=== PATIENT | male | born 1955 | race Caucasian/White ===

== ENCOUNTER 2019-05-10 12:15 | Emergency (ER) | payer OTHER, SELFPAY ==
[2019-05-10 12:22] VITALS: BP 137/71; PULSE 74; RESP 18; TEMP 36.1; O2SAT 99
--- NOTE | 2019-05-10 13:07 | ED.URI ---
HPI - URI/Sore Throat General Chief Complaint: Upper Respiratory Infection Stated Complaint: SINUS CONGESTION/SORE THROAT/COUGH Time Seen by Provider: 05/10/19 12:18 Source: patient Mode of arrival: ambulatory Limitations: no limitations History of Present Illness HPI Narrative: 63-year-old male presents to urgent care with complaints of sinus pressure, nasal congestion, sore throat, bilateral ear pain and dry cough for the past 5 days. Patient takes Claritin and guaifenesin daily. Patient also has been taking [id number] DayQuil and NyQuil with minimal relief. Patient is a non-smoker. Patient reports that family members have recently been ill with similar symptoms. Patient denies recent travel. Patient denies fever, bites, chills, nausea, vomiting or diarrhea. MD elicited complaint: cough, sore throat and nasal congestion Onset (ago): day(s) (5) Consistency: constant Able to tolerate fluids by mouth: Yes Exacerbating factors: nothing Relieving factors: nothing Treatments prior to arrival: cold medicine Related Data Home Medications Medication Instructions Recorded Confirmed aspirin 81 mg tablet,delayed 81 mg PO DAILY 02/03/19 05/10/19 release atorvastatin 40 mg tablet 40 mg PO DAILY 02/03/19 05/10/19 esomeprazole magnesium 40 mg 40 mg PO DAILY 02/03/19 05/10/19 capsule,delayed release finasteride 5 mg tablet 5 mg PO DAILY 02/03/19 05/10/19 loratadine 10 mg disintegrating 10 mg PO DAILY 02/03/19 05/10/19 tablet losartan 100 mg tablet 100 mg PO DAILY 02/03/19 05/10/19 metoprolol succinate 25 mg 25 mg PO DAILY 02/03/19 05/10/19 tablet,extended release 24 hr hydrochlorothiazide 25 mg PO DAILY 05/10/19 05/10/19 Allergies Allergy/AdvReac Type Severity Reaction Status Date / Time No Known Allergies Allergy Verified 05/10/19 12:31 Review of Systems Review of Systems: All systems reviewed & are unremarkable except as noted in HPI and below Constitutional: Constitutional: Denies chills, Denies fatigue, Denies fever(s) and Denies weakness ENT: Denies dysphagia, Denies vertigo, Denies dizziness, Reports nasal congestion and Reports sore throat Cardiovascular: Cardiovascular: Denies chest pain and Denies radiating jaw, neck or arm pain Respiratory: Respiratory: Denies chest congestion, Reports cough, Denies dyspnea and Denies wheezing Gastrointestinal: Gastrointestinal: Denies diarrhea, Denies nausea and Denies vomiting Neurologic: Denies vertigo, Denies dizziness, Denies syncope and Denies focal weakness [facility] Past Medical History Medical History (Updated 05/10/19 @ 13:14 by Esmer Winchester APN) Hypercholesteremia Hypertension Social History Social History (Updated 05/10/19 @ 13:10 by Esmer Winchester APN) Smoking status: Never smoker Exam Const: General: healthy appearing, no acute distress and alert Orientation/consciousness: patient oriented x3 Limitations: no limitations HENMT: Head: normal to inspection Ears: external ears normal and TM's normal bilaterally Face and sinus: sinuses nontender Mouth: Yes lip normal and Yes moist mucous membranes Throat: uvula midline Other: Nasal congestion noted, mild erythema noted to posterior pharynx with mild amount of clear postnasal drainage noted. Neck: Neck: normal visual inspection Resp: Effort & Inspection: normal respiratory effort Auscultation: clear to auscultation bilaterally Cardio: Rate: regular rate Rhythm: regular rhythm Heart sounds: no murmurs Skin: General skin exam: normal color Rashes: no rashes Neuro: General: patient oriented x3 Extrem: General: normal to inspection Psych: Appearance: grossly normal Mental Status: mental status grossly normal Affect: normal affect Attitude: cooperative Thought content: Yes Normal thought content present Course Vital Signs Vital signs: Vital Signs Temperature 36.1 C L 05/10/19 12:22 Pulse Rate 74 05/10/19 12:22 Respiratory Rate 18 05/10/19 12:22 Blood Pr
== END 2019-05-10 13:20 | disposition home or self-care (01) ==
PROVIDERS: Emergency Provider Nurse Practitioner Family; PCP Internal Medicine
DX: J06.9 Acute upper respiratory infection, unspecified (principal); E78.00 Pure hypercholesterolemia, unspecified; I10 Essential (primary) hypertension
CPT/HCPCS: 99213; G0463

== ENCOUNTER 2020-08-30 10:01 | Outpatient (CLI) | payer MEDICARE, OTHER, SELFPAY ==
--- NOTE | 2020-08-30 11:00 | NEURO_ITS ---
Impression: # Complains of numbness of right hand. # Right Carpal Tunnel Syndrome. # No ulnar neuropathy. # Needle/EMG exam not requested. Nerve Conduction Studies Anti Sensory Summary Table Stim Site NR Peak (ms) P-T Amp (?V) Site1 Site2 Delta-P (ms) Dist (cm) Alfa (m/s) Right Median Anti Sensory (2-3nd Digit) Wrist 3.9 9.0 Wrist 2-3nd Digit 3.9 14.0 36 Wrist 4.6 9.6 Wrist 2-3nd Digit 3.9 14.0 36 Right Radial Anti Sensory (Base 1st Digit) Wrist 2.4 18.9 Wrist Base 1st Digit 2.4 0.0 Right Ulnar Anti Sensory (5th Digit) Wrist 2.5 27.2 Wrist 5th Digit 2.5 14.0 56 Motor Summary Table Stim Site NR Onset (ms) O-P Amp (mV) Site1 Site2 Delta-0 (ms) Dist (cm) Alfa (m/s) Right Median Motor (Abd Poll Brev) Wrist 4.5 2.1 Elbow Wrist 5.7 30.0 53 Elbow 10.2 1.3 Right Ulnar Motor (Abd Dig Minimi) Wrist 2.3 6.6 A Elbow Wrist 5.8 32.0 55 A Elbow 8.1 5.6 F Wave Studies NR F-Lat (ms) L-R F-Lat (ms) Right Median (Mrkrs) (Abd Poll Brev) 31.70 Right Ulnar (Mrkrs) (Abd Dig Min) 30.70 MTDD
== END 2020-08-30 10:02 | disposition home or self-care (01) ==
PROVIDERS: PCP Internal Medicine; Visit Provider Plastic Surgery
DX: R20.2 Paresthesia of skin (principal); R53.1 Weakness; G56.01 Carpal tunnel syndrome, right upper limb
CPT/HCPCS: 95909

== ENCOUNTER 2021-03-05 09:31 | Outpatient (CLI) | payer MEDICARE, OTHER, SELFPAY ==
--- NOTE | ~2021-03-05 | US_ITS ---
US venous doppler [facility] DATE: 03/05/2021 10:04 INDICATION: Pain and swelling, warmth in the calf. TECHNIQUE: Real-time and color flow imaging and Doppler analysis of the veins of the left lower extre mity COMPARISON: None FINDINGS: The left greater saphenous vein is patent. There is spontaneous and phasic flow and normal augmentation and color flow signal and normal sriram jeane of the deep veins of the left lower extremity. IMPRESSION: No evidence of deep venous thrombosis of the left leg Reviewed, dictated and finalized at [facility]. Reviewed, dictated and finalized at location [facility]. TY COURT CLERK
== END 2021-03-05 09:32 | disposition home or self-care (01) ==
LOC: ANHIMG 09:37
PROVIDERS: PCP Internal Medicine
DX: Z96.652 Presence of left artificial knee joint (principal); M79.89 Other specified soft tissue disorders
CPT/HCPCS: 93971

== ENCOUNTER 2022-03-21 07:34 | Outpatient (CLI) | payer MEDICARE, SELFPAY ==
--- NOTE | ~2022-03-21 | CT_ITS ---
CT Abdomen and Pelvis with contrast. History: Thrombocytopenia. Spiral CT of the abdomen and pelvis was performed after the administration of intravenous contrast. 1 00 cc of Omnipaque 350 was administered intravenously without complication. Dose reduction technique was used on this scan by utilizing automated exposure control and iterative reconstruction technique. The dose-length product (DLP) was 809.57 mGy-cm. Findings: Scans through the lung bases demonstrate mild atelectatic change. The liver, pancreas, gallbladder, and adrenal glands are within normal limits. Spleen is upper limits of normal in size. 7 mm nonobstructing right renal stone present. Additional much smaller bilateral nonobstructing renal stones are also present. Left renal cyst present. No evidence of aortic aneurysm . No lymphadenopathy is seen. There is no evidence of bowel obstruction. There is no evidence to suggest acute appendicitis or dive rticulitis. Images through the pelvis were performed. Urinary bladder unremarkable. Prostate gland probably mildl y enlarged. No ascites is seen. Impression: Borderline splenomegaly. Nonobstructing bilateral nephrolithiasis, as detailed above. Reviewed, dictated and finalized at location M. CENTER OPERATIONS MANAGER Impression: Borderline splenomegaly. Nonobstructing bilateral nephrolithiasis, as detailed above.
[2022-03-21 08:09] LABS: Estimated Glomerular Filt Rate > 60
== END 2022-03-21 07:35 | disposition home or self-care (01) ==
PROVIDERS: PCP Internal Medicine Infectious Disease; Visit Provider Internal Medicine Infectious Disease
DX: D69.6 Thrombocytopenia, unspecified (principal); N20.0 Calculus of kidney
CPT/HCPCS: 74177; Q9967